=== PATIENT | female | born 1940 | race Caucasian/White ===

== ENCOUNTER 2016-10-30 09:51 | Outpatient (CLI) | payer MEDICARE, OTHER ==
[~2016-10-30 09:51] MED LIST: ALLO100T PO; AMLO5TAB2 PO; ATOR10TA PO; CHOL50002 PO; FERR325T28 PO; HYDR-4077 PO; LEVO50TA8 PO; MEMA10TA PO; NEBI10TA2 PO; OMEP20CA10 PO; SERT50TA PO; SULF1TAB48 PO; VIT1TABL46 PO
== END 2016-10-30 23:59 | disposition home or self-care (01) ==
LOC: MRI 09:51
PROVIDERS: ATTEND Family Medicine
DX: R22.32 Localized swelling, mass and lump, left upper limb (principal)
CPT/HCPCS: 73218-TC

== ENCOUNTER 2016-11-27 15:57 | Outpatient (CLI) | payer MEDICARE, OTHER | END 2016-11-27 23:59 | disposition home or self-care (01) | LOC: RAD 15:57 | PROVIDERS: ATTEND Internal Medicine Cardiovascular Disease | DX: M19.011 Primary osteoarthritis, right shoulder (principal) | CPT/HCPCS: 73030-TC ==

== ENCOUNTER 2017-01-06 08:45 | Outpatient (CLI) | payer MEDICARE, OTHER | END 2017-01-06 23:59 | disposition home or self-care (01) | LOC: RAD 08:45 | PROVIDERS: ATTEND Family Medicine | DX: R05 Cough (principal) | CPT/HCPCS: 71020-TC ==

== ENCOUNTER 2017-01-16 08:44 | Outpatient (CLI) | payer MEDICARE, OTHER | END 2017-01-16 23:59 | disposition home or self-care (01) | LOC: CT 08:44 | PROVIDERS: ATTEND Family Medicine | DX: M47.814 Spondylosis without myelopathy or radiculopathy, thoracic region (principal); I25.10 Atherosclerotic heart disease of native coronary artery without angina pectoris; R63.4 Abnormal weight loss; N26.1 Atrophy of kidney (terminal); K44.9 Diaphragmatic hernia without obstruction or gangrene; Z90.49 Acquired absence of other specified parts of digestive tract | CPT/HCPCS: 71250-TC ==

== ENCOUNTER 2017-03-05 13:43 | Outpatient (CLI) | payer MEDICARE, OTHER | END 2017-03-05 23:59 | disposition home or self-care (01) | LOC: RAD 13:43 | PROVIDERS: ATTEND Family Medicine | DX: S69.92XA Unspecified injury of left wrist, hand and finger(s), initial encounter (principal); M19.042 Primary osteoarthritis, left hand; M11.242 Other chondrocalcinosis, left hand; M85.842 Other specified disorders of bone density and structure, left hand; X58.XXXA Exposure to other specified factors, initial encounter; Y93.89 Activity, other specified; Y92.89 Other specified places as the place of occurrence of the external cause; Y99.8 Other external cause status | CPT/HCPCS: 73130-TC ==

== ENCOUNTER 2017-10-28 06:48 | Emergency (ER) | payer MEDICARE, OTHER ==
[~2017-10-28] VITALS: Ht 152.4 cm; Wt 68.0 kg
[2017-10-28 06:55] VITALS: BP 166/71
== END 2017-10-28 08:53 | disposition home or self-care (01) ==
LOC: ER 06:48
DX: R04.0 Epistaxis (principal); E11.9 Type 2 diabetes mellitus without complications; I10 Essential (primary) hypertension; K21.9 Gastro-esophageal reflux disease without esophagitis; Z98.84 Bariatric surgery status
CPT/HCPCS: A4606; Z7610

== ENCOUNTER 2017-11-01 22:59 | Emergency (ER) | payer MEDICARE, OTHER ==
[~2017-11-01] VITALS: Ht 152.4 cm; Wt 66.2 kg
--- NOTE | 2017-11-01 23:15 | NUR ---
PT AMBULATORY TO ER BED 1. PT BIB FAMILY C/O NOSEBLEED X 2 HRS AGO. NO ACTIVE BLEEDING NOTED. PT PLACED ON MOSS GATHERER. VSS/RESP EVEN UNLABORED/NAD NOTED/SKIN WARM AND DRY/DENIES N-V-D/ AFEBRILE/AOX4. AWAITING MD KIM.
--- NOTE | 2017-11-01 23:29 | NUR ---
DR. PLATA AT BEDSIDE FOR EVAL.
[2017-11-01] MEDS ORDERED: OXYMETAZOLINE HCL NASAL SPRAY 30 ML BOTTLE NS ONE (23:33)
[2017-11-01] MEDS ORDERED: LIDOCAINE 4% PF AMPUL 40 MG/ML AMPUL ONE (23:33)
[2017-11-01] MEDS ORDERED: LIDOCAINE VISCOUS 2% UD 15 ML UDC ONE (23:39)
--- NOTE | 2017-11-01 23:40 | NUR ---
AT BEDSIDE FOR EVAL.
--- NOTE | 2017-11-01 23:48 | NUR ---
LAB AT BEDSIDE FOR DRAW.
[2017-11-01 23:53] LABS: BASOPHILS % (AUTO) 0.4 % (0.0-2.0); EOSINOPHILS # (AUTO) 0.1 /CMM (0.0-0.7); EOSINOPHILS % (AUTO) 1.1 % (0.0-6.0); HEMATOCRIT 29 % (33-45); HEMOGLOBIN 9.9 g/dL (11.5-14.8); LYMPHOCYTES # (AUTO) 1.6 /CMM (0.8-4.8); LYMPHOCYTES % (AUTO) 31.9 % (20.0-44.0); MEAN CORPUSCULAR HEMOGLOBIN 31 PG (26.0-33.0); MEAN CORPUSCULAR HGB CONC 34 g/dl (31.0-36.0); MEAN CORPUSCULAR VOLUME 91 fL (82-100); MONOCYTES # (AUTO) 0.5 /CMM (0.1-1.30); MONOCYTES % (AUTO) 10.1 % (2.0-12.0); NEUTROPHILS # (AUTO) 2.9 /CMM (1.8-8.9); NEUTROPHILS % (AUTO) 56.5 % (43.0-81.0); PLATELET COUNT (AUTO) 150 /CMM (150-450); RDW COEFFICIENT OF VARIATION 13.1 (11.5-15.0); RED BLOOD CELL COUNT(AUTO) 3.16 MIL/uL (4.0-5.2); WHITE BLOOD COUNT (AUTO) 5.1 K/uL (4.3-11.0)
--- NOTE | 2017-11-02 00:31 | NUR ---
DR HAHN PAGED PER DR PLATA.
[2017-11-02] MEDS ORDERED: OXYMETAZOLINE HCL NASAL SPRAY 30 ML BOTTLE NS ONE (01:00)
--- NOTE | 2017-11-02 01:03 | NUR ---
Patient does not wish to proceed with medical care recommended by Dr. Sykes. Patient given information related to possible complications, up to and including , which could occur as a result of leaving the hospital at this time. Patient verbalizes understanding of risks involved due to leaving against medical advice. Patient has signed AMA form.
[2017-11-02 01:05] VITALS: BP 143/78
== END 2017-11-02 01:05 | disposition left against medical advice (07) ==
LOC: ER 23:10
DX: R04.0 Epistaxis (principal); D64.9 Anemia, unspecified; E11.9 Type 2 diabetes mellitus without complications; I10 Essential (primary) hypertension; K21.9 Gastro-esophageal reflux disease without esophagitis; Z98.84 Bariatric surgery status
CPT/HCPCS: 36415; 85025; 85610; 85730; 99284; A4606; J3490; Z7610

== ENCOUNTER → 2017-11-06 | Outpatient (CLI) | payer MEDICARE, OTHER ==
[2017-11-06 16:35] LABS: BASOPHILS % (AUTO) 0.4 % (0.0-2.0); EOSINOPHILS % (AUTO) 0.7 % (0.0-6.0); HEMATOCRIT 30 % (33-45); HEMOGLOBIN 10.2 g/dL (11.5-14.8); LYMPHOCYTES # (AUTO) 1.2 /CMM (0.8-4.8); MEAN CORPUSCULAR HEMOGLOBIN 31 PG (26.0-33.0); MEAN CORPUSCULAR HGB CONC 34 g/dl (31.0-36.0); MEAN CORPUSCULAR VOLUME 92 fL (82-100); MONOCYTES # (AUTO) 0.3 /CMM (0.1-1.30); MONOCYTES % (AUTO) 5.4 % (2.0-12.0); NEUTROPHILS # (AUTO) 3.3 /CMM (1.8-8.9); NEUTROPHILS % (AUTO) 68.5 % (43.0-81.0); PLATELET COUNT (AUTO) 168 /CMM (150-450); RDW COEFFICIENT OF VARIATION 13.3 (11.5-15.0); RED BLOOD CELL COUNT(AUTO) 3.29 MIL/uL (4.0-5.2); WHITE BLOOD COUNT (AUTO) 4.8 K/uL (4.3-11.0)
[2017-11-06 16:53] LABS: IRON, SERUM 21 ug/dl (50-175); TOTAL IRON BINDING CAPACITY 197 ug/dl (250-450)
[2017-11-06 17:07] LABS: FERRITIN 178 ng/mL (8-388)
[2017-11-07 11:13] LABS: *IFE A/G RATIO 0.9 (0.7-1.7); *IFE ALBUMIN 3.2 g/dL (2.9-4.4); *IFE GAMMA GLOBULIN 1.3 g/dL (0.4-1.8); *IFE M-SPIKE Not Observed g/dL (Not Observed); *IFEALPHA-1-GLOBULIN 0.3 g/dL (0.0-0.4)
[2017-11-08 21:07] LABS: BETA-2 MICROGLOBULIN, SERUM 9.6 mg/L (0.6-2.4)
== END | disposition home or self-care (01) ==
LOC: LAB 11:56
PROVIDERS: ATTEND Family Medicine
DX: D69.9 Hemorrhagic condition, unspecified (principal)
CPT/HCPCS: 36415; 82232; 82728-TC; 82746; 83540-TC; 85025-TC; 85240

== ENCOUNTER 2017-11-25 09:19 | Outpatient (CLI) | payer MEDICARE, OTHER ==
[2017-11-25 10:38] LABS: ALANINE AMINOTRANSFERASE 17 U/L (12-78); ALBUMIN 3.3 g/dL (3.4-5.0); ALKALINE PHOSPHATASE 75 U/L (46-116); ASPARTATE AMINOTRANSFERASE 14 U/L (15-37); BILIRUBIN,TOTAL 0.4 mg/dL (0.2-1.0); CALCIUM, SERUM 8.9 mg/dL (8.5-10.1); CARBON DIOXIDE 18 mmol/L (21-32); CHLORIDE 108 mmol/L (98-107); CREATININE 2.5 mg/dL (0.6-1.3); GLUCOSE 127 mg/dL (74-106); POTASSIUM 4.2 mmol/L (3.5-5.1); SODIUM SERUM 140 mmol/L (136-145); TOTAL PROTEIN, SERUM 7.8 g/dL (6.4-8.2)
[2017-11-25 10:39] LABS: IRON, SERUM 39 ug/dl (50-175); TOTAL IRON BINDING CAPACITY 225 ug/dl (250-450)
[2017-11-25 10:42] LABS: UREA NITROGEN, BLOOD 86 mg/dL (7-18)
[2017-11-25 10:45] LABS: CHOLESTEROL 150 mg/dL (<200); FREE T4 (FREE THYROXINE) 1.02 ng/dL (0.76-1.46); HDL CHOLESTEROL 27 mg/dL (40-60); LDL 104 mg/dL (0-99); THYROID STIMULATING HORMONE 1.777 uIU/mL (0.358-3.74); TRIGLYCERIDES 165 mg/dL (30-150)
[2017-11-25 11:00] LABS: BASOPHILS % (AUTO) 0.3 % (0.0-2.0); EOSINOPHILS # (AUTO) 0.1 /CMM (0.0-0.7); EOSINOPHILS % (AUTO) 1.3 % (0.0-6.0); HEMATOCRIT 30 % (33-45); HEMOGLOBIN 10.2 g/dL (11.5-14.8); LYMPHOCYTES # (AUTO) 1.3 /CMM (0.8-4.8); LYMPHOCYTES % (AUTO) 28.3 % (20.0-44.0); MEAN CORPUSCULAR HEMOGLOBIN 31 PG (26.0-33.0); MEAN CORPUSCULAR HGB CONC 34 g/dl (31.0-36.0); MEAN CORPUSCULAR VOLUME 91 fL (82-100); MONOCYTES # (AUTO) 0.4 /CMM (0.1-1.30); MONOCYTES % (AUTO) 7.7 % (2.0-12.0); NEUTROPHILS # (AUTO) 2.8 /CMM (1.8-8.9); NEUTROPHILS % (AUTO) 62.4 % (43.0-81.0); PLATELET COUNT (AUTO) 179 /CMM (150-450); RDW COEFFICIENT OF VARIATION 13.6 (11.5-15.0); RED BLOOD CELL COUNT(AUTO) 3.34 MIL/uL (4.0-5.2); WHITE BLOOD COUNT (AUTO) 4.5 K/uL (4.3-11.0)
[2017-11-25 11:30] LABS: APPEARANCE,URINE CLEAR (CLEAR); BILIRUBIN,URINE NEGATIVE (NEGATIVE); BLOOD, URINE NEGATIVE Ery/uL (NEGATIVE); COLOR,URINE YELLOW (YELLOW); KETONES,URINE NEGATIVE (NEGATIVE); LEUKOCYTE ESTERASE ,URINE NEGATIVE (NEGATIVE); NITRITE, URINE NEGATIVE (NEGATIVE); PH,URINE 5.5 (5.0-8.0); PROTEIN,URINE 2+ mg/dl (NEGATIVE); UGLUCOSE NEGATIVE (NEGATIVE); UROBILINOGEN,URINE 0.2 EU/dL (0.2)
[2017-11-25 13:30] LABS: BACTERIA,URINE Rare /HPF (None Seen); RBC,URINE 0-2 /HPF (0-2); SQUAMOUS EPITHELIAL CELL,UR Few /HPF (None Seen); WBC,URINE 0-2 /HPF (0-3)
[2017-11-26] MEDS ORDERED: NEBI2.5T5 PO (15:27)
[2017-11-26] MEDS ORDERED: HYDR100T27 PO (15:27)
[2017-11-26] MEDS ORDERED: TRAN650T2 PO (15:27)
[2017-11-26] MEDS ORDERED: SUCR1TAB31 PO (15:27)
[2017-11-26] MEDS ORDERED: [UNRECOGNIZED DRUG - CODE] NS (15:27)
== END 2017-11-25 23:59 | disposition home or self-care (01) ==
LOC: LAB 09:19
PROVIDERS: ATTEND Family Medicine
DX: D50.9 Iron deficiency anemia, unspecified (principal); R63.4 Abnormal weight loss; E55.9 Vitamin D deficiency, unspecified; E11.610 Type 2 diabetes mellitus with diabetic neuropathic arthropathy
CPT/HCPCS: 36415; 80053-TC; 80061-TC; 81000-TC; 82306; 82728-TC; 82746; 83540-TC; 84439-TC; 84443-TC; 85025-TC

== ENCOUNTER 2017-11-26 13:06 | Inpatient (IN) | payer MEDICARE, OTHER ==
[~2017-11-26] VITALS: Ht 152.4 cm; Wt 64.4 kg
--- NOTE | 2017-11-26 13:20 | NUR ---
PATIENT WAS SENT BY DR JEREZ FOR ABLAB FOR ELEVATED RENAL FUNCTION. PT DENIES PAIN. VSS
[2017-11-26 13:45] LABS: BASOPHILS % (AUTO) 0.2 % (0.0-2.0); EOSINOPHILS % (AUTO) 0.8 % (0.0-6.0); HEMATOCRIT 29 % (33-45); HEMOGLOBIN 10.2 g/dL (11.5-14.8); LYMPHOCYTES # (AUTO) 1.4 /CMM (0.8-4.8); LYMPHOCYTES % (AUTO) 34.3 % (20.0-44.0); MEAN CORPUSCULAR HEMOGLOBIN 31 PG (26.0-33.0); MEAN CORPUSCULAR HGB CONC 35 g/dl (31.0-36.0); MEAN CORPUSCULAR VOLUME 90 fL (82-100); MONOCYTES # (AUTO) 0.4 /CMM (0.1-1.30); MONOCYTES % (AUTO) 8.8 % (2.0-12.0); NEUTROPHILS # (AUTO) 2.4 /CMM (1.8-8.9); NEUTROPHILS % (AUTO) 55.9 % (43.0-81.0); PLATELET COUNT (AUTO) 168 /CMM (150-450); RED BLOOD CELL COUNT(AUTO) 3.28 MIL/uL (4.0-5.2); WHITE BLOOD COUNT (AUTO) 4.2 K/uL (4.3-11.0)
[2017-11-26 13:58] LABS: INR 0.95 (0.85-1.15)
[2017-11-26 14:03] LABS: TROPONIN I < 0.017 ng/mL (0.00-0.056)
[2017-11-26 14:07] LABS: ALANINE AMINOTRANSFERASE 15 U/L (12-78); ALBUMIN 3.2 g/dL (3.4-5.0); ALKALINE PHOSPHATASE 81 U/L (46-116); ASPARTATE AMINOTRANSFERASE 15 U/L (15-37); B-TYPE NATRIURETIC PEPTIDE 5154 PG/ML (0-125); BILIRUBIN,DIRECT 0.1 mg/dL (0.0-0.2); BILIRUBIN,TOTAL 0.5 mg/dL (0.2-1.0); CALCIUM, SERUM 8.7 mg/dL (8.5-10.1); CARBON DIOXIDE 19 mmol/L (21-32); CHLORIDE 110 mmol/L (98-107); CREATININE 2.5 mg/dL (0.6-1.3); GLUCOSE 178 mg/dL (74-106); POTASSIUM 4.4 mmol/L (3.5-5.1); SODIUM SERUM 140 mmol/L (136-145); TOTAL PROTEIN, SERUM 7.6 g/dL (6.4-8.2)
[2017-11-26 14:10] LABS: UREA NITROGEN, BLOOD 83 mg/dL (7-18)
--- NOTE | 2017-11-26 14:44 | NUR ---
DR WILSON ON THE PHONE WITH DR ANA JOSEPH
--- NOTE | 2017-11-26 14:55 | NUR ---
CALLED NURSING SUP. FOR TELE BED
--- NOTE | 2017-11-26 15:25 | NUR ---
KANNAN MARIN AT [facility]
[2017-11-26] MEDS ORDERED: HYDR100T27 PO (15:27)
[2017-11-26] MEDS ORDERED: [UNRECOGNIZED DRUG - CODE] NS (15:27)
[2017-11-26] MEDS ORDERED: NEBI2.5T5 PO (15:27)
[2017-11-26] MEDS ORDERED: SUCR1TAB31 PO (15:27)
[2017-11-26] MEDS ORDERED: TRAN650T2 PO (15:27)
[2017-11-26] MEDS ORDERED: IV NS 0.9% 500 ML IV ONE (15:30)
[2017-11-26] MEDS ORDERED: IV NS 0.9% 1,000 ML IV PRN (15:43)
--- NOTE | 2017-11-26 15:54 | NUR ---
REPORT GIVEN TO JARED IBARRA
[2017-11-26] MEDS ORDERED: ACETAMINOPHEN 325 MG TABLET PO PRN (16:00)
[2017-11-26] MEDS ORDERED: ONDANSETRON HCL/PF 4 MG/2 ML VIAL IVP PRN (16:00)
[2017-11-26] MEDS ORDERED: HYDROCODONE/APAP 5/325MG 1 EACH TABLET PO PRN (16:00)
[2017-11-26] MEDS ORDERED: MAGNESIUM HYDROXIDE 30 ML UDC PO PRN (16:00)
[2017-11-26] MEDS ORDERED: MAG HYDROX/AL HYDROX/SIMETH 30 ML UDC PO PRN (16:00)
[2017-11-26] MEDS ORDERED: SUCRALFATE 1 G TABLET PO PRN (16:00)
[2017-11-26] MEDS ORDERED: MORPHINE SULFATE INJ 4 MG/ML DISP.SYRIN IV PRN (17:00)
[2017-11-26] MEDS ORDERED: AMLODIPINE BESYLATE 5 MG TABLET PO SCH (17:00)
[2017-11-26] MEDS ORDERED: MEMANTINE HCL 5 MG TABLET PO SCH (17:00)
[2017-11-26] MEDS ORDERED: hydrALAZINE HCL 10 MG TABLET PO SCH ×2 (17:00→17:22)
[2017-11-26] MEDS ORDERED: BYSTOLIC 2.5 MG PO SCH (17:30)
[2017-11-26] MEDS ORDERED: IV NS 0.9% 500 ML IV PRN (17:30)
[2017-11-26] MEDS ORDERED: DDAVP PRN (17:30)
--- NOTE | 2017-11-26 18:00 | NUR ---
pt. adm. to rm [id number].hooked up to tele sr rate of 70.dtr.at bedside.dr. man in to see pt.orders per kirstie nixon.ua spec. to lab.
--- NOTE | 2017-11-26 18:30 | NUR ---
admit photos taken.
--- NOTE | 2017-11-26 19:40 | NUR ---
TRAUMA COORDINATOR OPENING NOTE RECEIVED PATIENT IN BED RESTING COMFORTABLY, ALERT ORIENTED X 3, ON ROOM AIR. RESPIRATIONS EVEN AND UNLABORED, NO SIGNS OF APPARENT DISTRESS OR DISCOMFORT NOTED, DENIES SOB AND PAIN AT THIS TIME. PATIENT ON TELE MONITOR. RIGHT AC IV 20G WITH FLUIDS RUNNING. PATIENT KEPT CLEAN AND COMFORTABLE. FAMILY AT BEDSIDE. SAFETY MEASURES IN PLACE, BED IN LOW LOCKED POSITION, SIDE RAILS UPX2, CALL LIGHT WITHIN EASY REACH. WILL CONTINUE TO MONITOR.
[2017-11-26 19:52] LABS: APPEARANCE,URINE CLEAR (CLEAR); BILIRUBIN,URINE NEGATIVE (NEGATIVE); BLOOD, URINE NEGATIVE Ery/uL (NEGATIVE); COLOR,URINE YELLOW (YELLOW); KETONES,URINE NEGATIVE (NEGATIVE); LEUKOCYTE ESTERASE ,URINE NEGATIVE (NEGATIVE); NITRITE, URINE NEGATIVE (NEGATIVE); PROTEIN,URINE 2+ mg/dl (NEGATIVE); UGLUCOSE NEGATIVE (NEGATIVE); UROBILINOGEN,URINE 0.2 EU/dL (0.2)
[2017-11-26 20:00] VITALS: BP 121/64
[2017-11-26 20:10] LABS: BACTERIA,URINE None seen /HPF (None Seen); SQUAMOUS EPITHELIAL CELL,UR Rare /HPF (None Seen)
[2017-11-26] MEDS ORDERED: TEMAZEPAM 15 MG CAPSULE PO PRN (22:00)
[2017-11-26] MEDS ORDERED: ATORVASTATIN 10 MG TABLET PO SCH (22:00)
[2017-11-26] MEDS: AMLODIPINE BESYLATE 5 MG TABLET PO SCH (22:06)
[2017-11-26] MEDS: MEMANTINE HCL 5 MG TABLET PO SCH (22:08)
[2017-11-27 06:45] LABS: BASOPHILS % (AUTO) 0.4 % (0.0-2.0); EOSINOPHILS # (AUTO) 0.1 /CMM (0.0-0.7); EOSINOPHILS % (AUTO) 1.8 % (0.0-6.0); HEMATOCRIT 27 % (33-45); HEMOGLOBIN 9.2 g/dL (11.5-14.8); LYMPHOCYTES # (AUTO) 1.5 /CMM (0.8-4.8); LYMPHOCYTES % (AUTO) 38.1 % (20.0-44.0); MEAN CORPUSCULAR HEMOGLOBIN 31 PG (26.0-33.0); MEAN CORPUSCULAR HGB CONC 34 g/dl (31.0-36.0); MEAN CORPUSCULAR VOLUME 90 fL (82-100); MONOCYTES # (AUTO) 0.4 /CMM (0.1-1.30); MONOCYTES % (AUTO) 11.2 % (2.0-12.0); NEUTROPHILS # (AUTO) 1.9 /CMM (1.8-8.9); NEUTROPHILS % (AUTO) 48.5 % (43.0-81.0); PLATELET COUNT (AUTO) 154 /CMM (150-450); RDW COEFFICIENT OF VARIATION 13.9 (11.5-15.0); RED BLOOD CELL COUNT(AUTO) 3.03 MIL/uL (4.0-5.2); WHITE BLOOD COUNT (AUTO) 3.8 K/uL (4.3-11.0)
--- NOTE | 2017-11-27 06:51 | NUR ---
MS RN CLOSING NOTE PATIENT IN BED RESTING COMFORTABLY, ALERT ORIENTED X 3, FORGETFUL AT TIMES. ON ROOM AIR. RESPIRATIONS EVEN AND UNLABORED, NO SIGNS OF APPARENT DISTRESS OR DISCOMFORT NOTED, DENIES SOB AND PAIN AT THIS TIME. RIGHT AC IV 20G WITH HL. PATENT AND INTACT, FLASHED WITH SALINE. PATIENT IS AMBULATORY. ABLE TO MAKE NEEDS KNOWN. KEPT CLEAN AND COMFORTABLE ALL NEEDS ATTENDED. SAFETY MEASURES IN PLACE, BED IN LOW LOCKED POSITION, SIDE RAILS UPX2, CALL LIGHT WITHIN EASY REACH. WILL CONTINUE TO MONITOR. Addendum: 11/27/17 at 0654 by LINDSAY ROSALES RN WILL ENDORSE TO AM NURSE FOR CONTINUITY OF CARE.
[2017-11-27 07:02] LABS: CHOLESTEROL 133 mg/dL (<200); HDL CHOLESTEROL 23 mg/dL (40-60); LDL 87 mg/dL (0-99); TRIGLYCERIDES 161 mg/dL (30-150)
[2017-11-27 07:08] LABS: CALCIUM, SERUM 8.6 mg/dL (8.5-10.1); CARBON DIOXIDE 17 mmol/L (21-32); CHLORIDE 113 mmol/L (98-107); CREATININE 2.2 mg/dL (0.6-1.3); GLUCOSE 110 mg/dL (74-106); MAGNESIUM 1.8 mg/dL (1.8-2.4); PHOSPHORUS 4.8 mg/dL (2.5-4.9); POTASSIUM 4.1 mmol/L (3.5-5.1); SODIUM SERUM 143 mmol/L (136-145); UREA NITROGEN, BLOOD 76 mg/dL (7-18)
[2017-11-27] MEDS ORDERED: PANTOPRAZOLE 40 MG TABLET.DR PO SCH (07:30)
[2017-11-27 08:00] VITALS: BP 135/62
[2017-11-27] MEDS ORDERED: hydrALAZINE HCL 25 MG TABLET PO SCH (08:30)
--- NOTE | 2017-11-27 08:44 | NUR ---
MS RN AM NOTE: PATIENT IS ALERT AND ORIENTED X2. PATIENT IS BRP, HAS RIGHT AC IV NOT RUNNING, AND ON ROOM AIR. RESPIRATIONS EVEN AND UNLABORED. NO ACUTE DISTRESS NOTED AT THE MOMENT. CALL LIGHT WITHIN REACH, BED IN LOCKED POSITION, AND 2X GUARD RAILS UP. PATIENT MONITORED FOR SAFETY.
[2017-11-27] MEDS ORDERED: FERROUS SULFATE (325 MG) 325 MG/TAB TABLET PO SCH (09:00)
[2017-11-27] MEDS ORDERED: LEVOTHYROXINE SODIUM 50 MCG TABLET PO SCH (09:00)
[2017-11-27] MEDS ORDERED: CHOLECALCIFEROL (VITAMIN D 3) 400 UNIT TABLET PO SCH (09:00)
[2017-11-27] MEDS ORDERED: VIT B CMPLX 3/FA/VIT C/BIOTIN 1 TAB TABLET PO SCH (09:00)
[2017-11-27] MEDS: AMLODIPINE BESYLATE 5 MG TABLET PO SCH (09:07)
[2017-11-27] MEDS: MEMANTINE HCL 5 MG TABLET PO SCH (09:07)
[2017-11-27 09:08] VITALS: BP 135/62
--- NOTE | 2017-11-27 11:00 | NUR ---
MEAT BUTCHER NOTE: PATIENT LEFT THE UNIT AT 1055, ACCOMPANIED BY DAUGHTER. PATIENT MEDICALLY STABLE DURING DISCHARGE. V/S STABLE. IV RIGHT AC REMOVED AND TOLERATED WELL. SKIN ASSESSMENT REFUSED. EXIT CARE SIGNED, PRINTED, AND EXPLAINED TO PATIENT'S DAUGHTER. BELONGINGS AND MEDICATIONS GIVEN TO PATIENT AT DISCHARGE. ROBERTH MCKEON GAVE ORDER OF DISCHARGE AND AWARE. PATIENT ESCORTED DOWN TO LOBBY IN WHEELCHAIR.
== END 2017-11-27 10:49 | disposition home or self-care (01) | DRG 683 ==
LOC: ER 13:09 → TELE 16:04 → MED 23:55
PROVIDERS: ADMIT Nurse Practitioner Acute Care; ATTEND Nurse Practitioner Acute Care
DX: N17.0 Acute kidney failure with tubular necrosis (principal); I13.0 Hypertensive heart and chronic kidney disease with heart failure and stage 1 through stage 4 chronic kidney disease, or unspecified chronic kidney disease; E11.22 Type 2 diabetes mellitus with diabetic chronic kidney disease; I50.32 Chronic diastolic (congestive) heart failure; J98.11 Atelectasis; D63.8 Anemia in other chronic diseases classified elsewhere; N18.9 Chronic kidney disease, unspecified; K21.9 Gastro-esophageal reflux disease without esophagitis; E78.5 Hyperlipidemia, unspecified; Z98.84 Bariatric surgery status; F03.90 Unspecified dementia, unspecified severity, without behavioral disturbance, psychotic disturbance, mood disturbance, and anxiety; R04.0 Epistaxis; I34.0 Nonrheumatic mitral (valve) insufficiency
CPT/HCPCS: 36415; 71045-TC; 80048-TC; 80061-TC; 80076-TC; 81000-TC; 83735-TC; 83880; 84100-TC; 84484-TC; 85025-TC; 85730-TC; 87081-TC; A4606; J7030; J7040; Z7610

== ENCOUNTER 2017-12-05 09:20 | Outpatient (CLI) | payer MEDICARE, OTHER ==
[~2017-12-05 09:20] MED LIST changes: -ALLO100T PO; -HYDR-4077 PO; +HYDR100T27 PO; -NEBI10TA2 PO; +NEBI2.5T5 PO; +SUCR1TAB31 PO; -SULF1TAB48 PO; +TRAN650T2 PO; +[UNRECOGNIZED DRUG - CODE] NS
[2017-12-05 10:06] LABS: CALCIUM, SERUM 8.5 mg/dL (8.5-10.1); CARBON DIOXIDE 21 mmol/L (21-32); CHLORIDE 102 mmol/L (98-107); CREATININE 1.7 mg/dL (0.6-1.3); GLUCOSE 132 mg/dL (74-106); POTASSIUM 4.7 mmol/L (3.5-5.1); SODIUM SERUM 133 mmol/L (136-145); UREA NITROGEN, BLOOD 51 mg/dL (7-18)
== END 2017-12-05 23:59 | disposition home or self-care (01) ==
LOC: LAB 09:20
PROVIDERS: ATTEND Family Medicine
DX: N17.9 Acute kidney failure, unspecified (principal)
CPT/HCPCS: 36415; 80048-TC

== ENCOUNTER 2017-12-16 09:06 | Outpatient (CLI) | payer MEDICARE, OTHER | END 2017-12-16 23:59 | disposition home or self-care (01) | LOC: MRI 09:06 | PROVIDERS: ATTEND Family Medicine | DX: R90.82 White matter disease, unspecified (principal); G93.89 Other specified disorders of brain; J32.0 Chronic maxillary sinusitis; J32.2 Chronic ethmoidal sinusitis | CPT/HCPCS: 70551-TC ==

== ENCOUNTER 2017-12-18 08:43 | Outpatient (CLI) | payer MEDICARE, OTHER ==
[2017-12-18 09:45] LABS: CALCIUM, SERUM 8.6 mg/dL (8.5-10.1); CARBON DIOXIDE 22 mmol/L (21-32); CHLORIDE 109 mmol/L (98-107); CREATININE 1.9 mg/dL (0.6-1.3); GLUCOSE 115 mg/dL (74-106); POTASSIUM 5.6 mmol/L (3.5-5.1); SODIUM SERUM 140 mmol/L (136-145); UREA NITROGEN, BLOOD 37 mg/dL (7-18)
== END 2017-12-18 23:59 | disposition home or self-care (01) ==
LOC: LAB 08:43
PROVIDERS: ATTEND Family Medicine
DX: E87.5 Hyperkalemia (principal)
CPT/HCPCS: 36415; 80048-TC

== ENCOUNTER 2017-12-30 08:22 | Outpatient (CLI) | payer MEDICARE, OTHER ==
[~2017-12-30 08:22] MED LIST changes: -AMLO5TAB2 PO; +AMLO5TAB7 PO
== END 2017-12-30 23:59 | disposition home or self-care (01) ==
LOC: RAD 08:22
PROVIDERS: ATTEND Family Medicine
DX: I70.0 Atherosclerosis of aorta (principal); M46.04 Spinal enthesopathy, thoracic region; J98.11 Atelectasis; Z90.49 Acquired absence of other specified parts of digestive tract
CPT/HCPCS: 71046

== ENCOUNTER 2018-01-22 09:05 | Outpatient (CLI) | payer MEDICARE, OTHER | END 2018-01-22 23:59 | disposition home or self-care (01) | LOC: CT 09:05 | PROVIDERS: ATTEND Family Medicine | DX: J98.11 Atelectasis (principal); R63.4 Abnormal weight loss; I51.7 Cardiomegaly; I25.10 Atherosclerotic heart disease of native coronary artery without angina pectoris; M47.896 Other spondylosis, lumbar region; M43.26 Fusion of spine, lumbar region; I70.0 Atherosclerosis of aorta; Z90.49 Acquired absence of other specified parts of digestive tract | CPT/HCPCS: 71250-TC ==

== ENCOUNTER 2018-01-23 09:53 | Outpatient (CLI) | payer MEDICARE, OTHER ==
[2018-01-23 11:33] LABS: CALCIUM, SERUM 8.8 mg/dL (8.5-10.1); CARBON DIOXIDE 20 mmol/L (21-32); CHLORIDE 107 mmol/L (98-107); CREATININE 2.3 mg/dL (0.6-1.3); GLUCOSE 132 mg/dL (74-106); POTASSIUM 5.1 mmol/L (3.5-5.1); SODIUM SERUM 138 mmol/L (136-145); UREA NITROGEN, BLOOD 41 mg/dL (7-18)
== END 2018-01-23 23:59 | disposition home or self-care (01) ==
LOC: LAB 09:53
PROVIDERS: ATTEND Family Medicine
DX: E87.5 Hyperkalemia (principal)
CPT/HCPCS: 36415; 80048-TC

== ENCOUNTER 2018-07-08 08:57 | Outpatient (CLI) | payer MEDICARE, OTHER | END 2018-07-08 23:59 | disposition home or self-care (01) | LOC: MRI 08:57 | PROVIDERS: ATTEND Family Medicine | DX: I67.82 Cerebral ischemia (principal); J32.2 Chronic ethmoidal sinusitis; M17.12 Unilateral primary osteoarthritis, left knee; I70.90 Unspecified atherosclerosis; I10 Essential (primary) hypertension; E11.9 Type 2 diabetes mellitus without complications | CPT/HCPCS: 70551-TC; 73562 ==

== ENCOUNTER 2018-10-15 14:55 | Outpatient (CLI) | payer MEDICARE, OTHER ==
[~2018-10-15 14:55] MED LIST changes: -AMLO5TAB7 PO; +AMLO5TAB9 PO
== END 2018-10-15 23:59 | disposition home or self-care (01) ==
LOC: CT 14:55
PROVIDERS: ATTEND Family Medicine
DX: I51.7 Cardiomegaly (principal); J90 Pleural effusion, not elsewhere classified; I70.0 Atherosclerosis of aorta; I25.10 Atherosclerotic heart disease of native coronary artery without angina pectoris; M46.04 Spinal enthesopathy, thoracic region
CPT/HCPCS: 71250-TC

== ENCOUNTER 2018-12-17 10:36 | Outpatient (CLI) | payer MEDICARE, OTHER | END 2018-12-17 23:59 | disposition home or self-care (01) | LOC: RAD 10:36 | PROVIDERS: ATTEND Family Medicine | DX: I70.0 Atherosclerosis of aorta (principal); M47.814 Spondylosis without myelopathy or radiculopathy, thoracic region | CPT/HCPCS: 71046 ==

== ENCOUNTER 2019-03-05 09:42 | Outpatient (CLI) | payer MEDICARE, OTHER | END 2019-03-05 23:59 | disposition home or self-care (01) | LOC: RAD 09:42 | PROVIDERS: ATTEND Family Medicine | DX: M77.32 Calcaneal spur, left foot (principal); M85.872 Other specified disorders of bone density and structure, left ankle and foot; R22.42 Localized swelling, mass and lump, left lower limb | CPT/HCPCS: 73610-TC ==

== ENCOUNTER 2019-04-30 10:24 | Outpatient (CLI) | payer MEDICARE, OTHER ==
[~2019-04-30 10:24] MED LIST changes: -OMEP20CA10 PO; +OMEP20CA11 PO
== END 2019-04-30 23:59 | disposition home or self-care (01) ==
LOC: RAD 10:24
PROVIDERS: ATTEND Family Medicine
DX: J90 Pleural effusion, not elsewhere classified (principal); I70.0 Atherosclerosis of aorta; I51.7 Cardiomegaly
CPT/HCPCS: 71046

== ENCOUNTER 2022-08-12 01:13 | Inpatient (IN) | payer MEDICARE, OTHER ==
[~2022-08-12] VITALS: Ht 152.4 cm; Wt 74.4 kg
[~2022-08-12 01:13] MED LIST changes: +AMLO-212 PO; -AMLO5TAB9 PO; -OMEP20CA11 PO; +OMEP20CA15 PO
--- NOTE | 2022-08-12 01:33 | NUR ---
BIBRA FOR C/O ALOC, MORE DIFFICULT TO AROUSE THAN USUAL EARLIER TODAY. PT CURRENTLY AT BASELINE MENTATION X1 DUE TO HX OF DEMENTIA. DAUGHTER HAS ALSO ENDORSED RECENT DESATURTION OVER THE LAST FEW DAYS. PT SATTING 92%RA, PLACED ON 2LPM NC AND INCREASED TO 98%. PT RESTING COMOFORTABLY EASILY AROUSES NO SOB OR COMPLAINTS OF PAIN. PLACED ON MONITOR AND V/S WNL.
--- NOTE | 2022-08-12 02:27 | NUR ---
XRAY AT BEDSIDE
--- NOTE | 2022-08-12 02:46 | NUR ---
PT DOES NOT PRODUCE URINE DUE TO HX ESRD. MADE AWARE FOR UA.
[2022-08-12 03:05] LABS: BASOPHILS % (AUTO) 0.2 % (0.0-2.0); EOSINOPHILS % (AUTO) 1.6 % (0.0-6.0); HEMATOCRIT 27 % (33-45); LYMPHOCYTES # (AUTO) 1.9 K/uL (0.8-4.8); LYMPHOCYTES % (AUTO) 25.9 % (20.0-44.0); MEAN CORPUSCULAR HGB CONC 33 g/dl (31.0-36.0); MEAN CORPUSCULAR VOLUME 103 fL (82-100); MONOCYTES # (AUTO) 0.7 K/uL (0.1-1.30); MONOCYTES % (AUTO) 9.8 % (2.0-12.0); NEUTROPHILS # (AUTO) 4.6 K/uL (1.8-8.9); NEUTROPHILS % (AUTO) 62.5 % (43.0-81.0); PLATELET COUNT (AUTO) 188 K/uL (150-450); RED BLOOD CELL COUNT(AUTO) 2.64 MIL/uL (4.0-5.2); WHITE BLOOD COUNT (AUTO) 7.4 K/uL (4.3-11.0)
[2022-08-12 03:24] LABS: ALANINE AMINOTRANSFERASE < 6 U/L (12-78); ALBUMIN 2.8 g/dL (3.4-5.0); ALKALINE PHOSPHATASE 232 U/L (46-116); ASPARTATE AMINOTRANSFERASE 16 U/L (15-37); BILIRUBIN,DIRECT 0.1 mg/dL (0.0-0.2); BILIRUBIN,TOTAL 0.5 mg/dL (0.2-1.0); CALCIUM, SERUM 7.1 mg/dL (8.5-10.1); CARBON DIOXIDE 27 mmol/L (21-32); CHLORIDE 111 mmol/L (98-107); GLUCOSE 158 mg/dL (74-106); POTASSIUM 3.7 mmol/L (3.5-5.1); SODIUM SERUM 144 mmol/L (136-145); TOTAL PROTEIN, SERUM 6.5 g/dL (6.4-8.2)
[2022-08-12 03:33] LABS: CREATININE 8.5 mg/dL (0.6-1.3); UREA NITROGEN, BLOOD 88 mg/dL (7-18)
--- NOTE | 2022-08-12 03:41 | NUR ---
leslee collected and sent to lab
[2022-08-12] MEDS ORDERED: MORPHINE SULFATE INJ 2 MG/ML DISP.SYRIN IV PRN (05:30)
[2022-08-12] MEDS ORDERED: ZOLPIDEM TARTRATE 5 MG TABLET PO PRN (05:30)
[2022-08-12] MEDS ORDERED: Z GUARD REMEDY 4 OZ OINT TP PRN (05:30)
[2022-08-12] MEDS ORDERED: ACETAMINOPHEN 325 MG TABLET PO PRN (05:30)
[2022-08-12] MEDS ORDERED: MAG HYDROX/AL HYDROX/SIMETH 30 ML UDC PO PRN (05:30)
[2022-08-12] MEDS ORDERED: MAGNESIUM HYDROXIDE 30 ML UDC PO PRN (05:30)
[2022-08-12] MEDS ORDERED: ONDANSETRON HCL/PF 4 MG/2 ML VIAL IVP PRN (05:30)
[2022-08-12] MEDS ORDERED: DEXTROSE 50%-WATER 50 ML DISP.SYRIN IV PRN (06:00)
--- NOTE | 2022-08-12 06:34 | NUR ---
REPORT GIVEN TO STACEY BROCK ON FIRST FLOOR
--- NOTE | 2022-08-12 06:46 | NUR ---
Thaddeus kasper in [facility] - 08/12/22 at 0647 by ALONSO PT TRANSPORTED TO ROOM 114
--- NOTE | 2022-08-12 06:47 | NUR ---
PT TRANSPORTED TO ROOM 114 PER ACLS PROTOCOL
[2022-08-12 06:57] VITALS: BP 107/57
--- NOTE | 2022-08-12 07:01 | NUR ---
PT RECEIVED FROM ER WITH DAUGHTER. PICTURES TAKEN OF PRE-EXISTING WOUNDS. VS WNL. HEALTH CLUB ATTENDANT IN PLACE. PT ON 2L NC WITH SAT OF 100%. L WRIST 20 G IV ACCESS INTACT.
--- NOTE | 2022-08-12 07:25 | NUR ---
RECEIVED CALL FROM SOC AT THE LAB WITH TROPONIN RESULT OF [phone], WAS 466 EARLIER, TROPONIN TRENDING DOWN
--- NOTE | 2022-08-12 07:25 | NUR ---
AM TELE OPENING NOTES: RECEIVED PATIENT IN BED AWAKE, ALERT X 2 WITH PERIODS OF CONFUSION. NO SOB NOTED, BREATHING EVEN AND UNLABORED. ON OXYGEN @ 2L/MIN VIA N/C WITH OXYGEN SATURATION OF 100%. ON SR ON TELE MONITOR WITH HR OF 72. PATIENT HAS IV ACCESS ON LEFT WRIST # 20, ON SALINE LOCK, INTACT AND FLUSHES WELL, WITH NO S/S INFILTRATION NOTED. HAS PERMACATH ON LEFT CHEST WALL, NOTED WITH REDNESS SURROUNDING THE SITE. ALSO HAS NEW AV SHUNT PLACED ON RIGHT FOREARM, WITH GOOD BRUIT NOTED, ALSO HAS REDNESS AND ECCHYMOSIS NOTED ON THE SURROUNDING SITE. 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 HOB KEPT ELEVATED. ALL SAFETY MEASURES IMPLEMENTED. BED LOCKED AND IN LOWEST POSITION. CALL LIGHT WITHIN REACH. WILL CONTINUE TO MONITOR PATIENT THROUGHOUT SHIFT.
[2022-08-12] MEDS: BLOOD SUGAR DIAGNOSTIC 1 EACH STRIP IN SCH ×4 (07:52→21:36)
[2022-08-12] MEDS: INSULIN REGULAR, HUMAN 100 UNIT/ML 3 ML VIAL SQ PRN ×3 (07:54→22:12)
[2022-08-12 08:00] VITALS: BP 118/48
[2022-08-12] MEDS: ASPIRIN 81 MG TAB.CHEW PO SCH ×2 (09:00→09:01)
[2022-08-12] MEDS: PANTOPRAZOLE 40 MG VIAL IV SCH (09:01)
[2022-08-12] MEDS ORDERED: OMEPRAZOLE 20 MG CAPSULE.DR PO SCH (09:30)
[2022-08-12] MEDS: AMLODIPINE BESYLATE 5 MG TABLET PO SCH ×2 (09:30→16:10)
[2022-08-12] MEDS ORDERED: SUCRALFATE 1 G TABLET PO PRN (09:30)
[2022-08-12] MEDS ORDERED: MIRT-90 PO (10:33)
[2022-08-12] MEDS ORDERED: ERGO500093 PO (10:33)
[2022-08-12] MEDS ORDERED: ESCI5TAB PO (10:33)
[2022-08-12] MEDS ORDERED: SEVE800T8 PO (10:33)
[2022-08-12] MEDS ORDERED: EVOL140P3 SQ (10:33)
[2022-08-12 11:01] LABS: THYROID STIMULATING HORMONE 0.437 uIU/mL (0.358-3.74)
[2022-08-12 12:00] VITALS: BP 109/35
[2022-08-12 12:25] LABS: IRON, SERUM 22 ug/dl (50-175); TOTAL IRON BINDING CAPACITY 140 ug/dl (250-450)
--- NOTE | 2022-08-12 12:39 | NUR ---
SOC FROM THE LAB CALLED TO GIVE REPORT OF TROPONIN OF [phone], RESULT TRENDING DOWN. PATIENT HAS NO C/O CHEST PAIN OR DISCOMFORT AT THIS TIME.
[2022-08-12] MEDS: ESCITALOPRAM OXALATE (10 MG) 10 MG TABLET PO SCH (13:45)
--- NOTE | 2022-08-12 14:23 | NUR ---
SPOKE WITH DR. CHRIS AND INFORMED HIM THAT THE PATENT'S DAUGHTER SAID THAT SHE ONLY TAKES NAMENDA 5 MG PO BID AND THAT SHE DOES NOT TAKE ANY BP MEDS AND DOES NOT TAKE ASPIRIN. ORDERED TO D/C ALL HER BP MEDS AND ASPIRIN AND ORDERED NAMENDA 5 MG PO BID. ALSO INFORMED OF TROPONIN TRENDING DOWN WITH LATEST RESULT OF 387 WITH NO FURTHER ORDERS NOTED.
[2022-08-12 16:00] VITALS: BP 99/36
[2022-08-12] MEDS: MEMANTINE HCL 5 MG TABLET PO SCH (16:50)
[2022-08-12] MEDS ORDERED: MEMANTINE HCL 5 MG TABLET PO SCH (17:00)
[2022-08-12] MEDS ORDERED: hydrALAZINE HCL 50 MG TABLET PO SCH (17:00)
[2022-08-12] MEDS ORDERED: SERTRALINE HCL 50 MG TABLET PO SCH ×2 (18:00)
--- NOTE | 2022-08-12 18:52 | NUR ---
GOLD BLOWER CLOSING NOTES: PATIENT IN BED, AWAKE, ALERT ORIENTED X 2 WITH DAUGHTER AT BEDSIDE. PATIENT WITH NO C/O CHEST PAIN OR DISCOMFORT THROUGHOUT SHIFT. NO SOB NOTED. ON OXYGEN @ 1L/MIN VIA N/C WITH OXYGEN SATURATION OF 97%. ON SR ON TELE MONITOR WITH HR OF 88. ALL NEEDS MET AND ANTICIPATED. CALL LIGHT WITHIN REACH. FAMILY MEMBER WILL STAY DURING THE NIGHT, MD AND NURSING MIXING MACHINE TENDER MADE AWARE. WILL ENDORSE TO INCOMING NURSE FOR CONTINUITY OF CARE.
--- NOTE | 2022-08-12 19:45 | NUR ---
MICROBIOLOGY LAB MANAGER OPENING NOTES: RECEIVED PATIENT IN BED, AWAKE, ALERT ORIENTED X 2 WITH DAUGHTER AT BEDSIDE. PATIENT WITH NO C/O CHEST PAIN OR DISCOMFORT THROUGHOUT SHIFT. NO SOB NOTED. ON OXYGEN @ 1L/MIN VIA N/C WITH OXYGEN SATURATION OF 97%. ON SR ON TELE MONITOR, SAFETY PRECAUTIONS IN PLACED, CALL LIGHT WITHIN REACH. FAMILY MEMBER WILL STAY DURING THE NIGHT, MD AND NURSING HEALTH CLUB ATTENDANT MADE AWARE. WILL CONTINUE TO MONITOR THROUGHOUT THE SHIFT.
[2022-08-12 20:00] VITALS: BP 100/54
--- NOTE | 2022-08-12 20:30 | NUR ---
RN NOTE INFORMED INKER JOSE ABOUT PT DAUGHTER REQUESTING TO GIVE EPOGEN TO PT DURING DIALYSIS DUE TO ANEMIA. HGB AT 9.0 AT THIS TIME. PER INKER " NO NEED TO GIVE AT THIS TIME" ORDER TAKEN AND CARRIED OUT.
--- NOTE | 2022-08-12 20:40 | NUR ---
RN NOTE HD STARTED AT THIS TIME WITH AUTOMOTIVE SERVICES MANAGER AT BEDSIDE.
[2022-08-12] MEDS: ATORVASTATIN 10 MG TABLET PO SCH (21:36)
--- NOTE | 2022-08-12 21:40 | NUR ---
RN NOTE PT ONGOING DIALYSIS, NOTED PT WITH LOW BP. DR. WEST MADE AWARE AND ORDERED TO STOPPED DIALYSIS AT THIS TIME AND MIDODRINE 10 MG PO TID. NO FLUIDS TAKEN OUT DURING HD. ORDER TAKEN AND CARRIED OUT, WILL CONT TO MONITOR PT.
[2022-08-12] MEDS: MIDODRINE HCL (5MG) 5 MG TABLET PO SCH (22:04)
[2022-08-13] VITALS: BP 95/48
[2022-08-13 04:00] VITALS: BP 124/49
--- NOTE | 2022-08-13 06:57 | NUR ---
OPERATIONAL TRAINER CLOSING NOTES: PATIENT IN BED, AWAKE, ALERT ORIENTED X 2 WITH DAUGHTER AT BEDSIDE. PATIENT WITH NO C/O CHEST PAIN OR DISCOMFORT THROUGHOUT SHIFT. NO SOB NOTED. ON OXYGEN @ 2L/MIN VIA N/C WITH OXYGEN SATURATION OF 96%. ON SR ON TELE MONITOR HR AT 70 BPM, ALL DUE MEDS GIVEN, KEPT DRY AND CLEAN, SAFETY PRECAUTIONS IN PLACED, CALL LIGHT WITHIN REACH. FAMILY MEMBER STAYED DURING THE NIGHT, WILL ENDORSE TO AM SHIFT NURSE FOR CONTINUITY OF CARE.
[2022-08-13 07:16] LABS: BASOPHILS % (AUTO) 0.3 % (0.0-2.0); EOSINOPHILS % (AUTO) 1.8 % (0.0-6.0); HEMATOCRIT 27 % (33-45); HEMOGLOBIN 8.9 g/dL (11.5-14.8); LYMPHOCYTES # (AUTO) 1.7 K/uL (0.8-4.8); LYMPHOCYTES % (AUTO) 22.3 % (20.0-44.0); MEAN CORPUSCULAR HGB CONC 33 g/dl (31.0-36.0); MEAN CORPUSCULAR VOLUME 104 fL (82-100); MONOCYTES # (AUTO) 0.8 K/uL (0.1-1.30); MONOCYTES % (AUTO) 9.9 % (2.0-12.0); NEUTROPHILS # (AUTO) 5.1 K/uL (1.8-8.9); NEUTROPHILS % (AUTO) 65.7 % (43.0-81.0); PLATELET COUNT (AUTO) 183 K/uL (150-450); WHITE BLOOD COUNT (AUTO) 7.8 K/uL (4.3-11.0)
--- NOTE | 2022-08-13 07:30 | NUR ---
AM TELE OPENING NOTES: RECEIVED PATIENT IN BED AWAKE, ALERT X 2 WITH FAMILY AT BEDSIDE. NO RESPIRATORY DISTRESS NOTED AT THIS TIME AND BREATHING EVEN AND UNLABORED. ON OXYGEN @ 1L/MIN VIA N/C WITH OXYGEN SATURATION OF 96%. ON SR ON TELE MONITOR WITH HR OF 82. IV ACCESS ON LEFT WRIST # 20, ON SALINE LOCK, INTACT, FLUSHES WELL, WITH NO S/S INFILTRATION NOTED. PATIENT HAS PERMACATH ON LEFT CHEST WALL, ALSO HAS NEW AV SHUNT PLACED ON RIGHT FOREARM, WITH GOOD BRUIT NOTED, ALSO HAS REDNESS AND ECCHYMOSIS NOTED ON THE NEW SITE. 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 CALL LIGHT WITHIN REACH. ALL SAFETY MEASURES IN PLACE. BED LOCKED AND IN LOWEST POSITION. WILL CONTINUE TO MONITOR PATIENT
[2022-08-13] MEDS: LEVOTHYROXINE SODIUM 50 MCG TABLET PO SCH (07:50)
[2022-08-13 08:00] VITALS: BP 137/39
[2022-08-13 08:08] LABS: CALCIUM, SERUM 7.4 mg/dL (8.5-10.1); CARBON DIOXIDE 22 mmol/L (21-32); CHLORIDE 106 mmol/L (98-107); GLUCOSE 168 mg/dL (74-106); MAGNESIUM 2.2 mg/dL (1.8-2.4); SODIUM SERUM 144 mmol/L (136-145)
[2022-08-13 08:09] LABS: UREA NITROGEN, BLOOD 84 mg/dL (7-18)
[2022-08-13 08:14] LABS: IRON, SERUM 16 ug/dl (50-175); TOTAL IRON BINDING CAPACITY 133 ug/dl (250-450)
[2022-08-13] MEDS: ESCITALOPRAM OXALATE (10 MG) 10 MG TABLET PO SCH (08:14)
[2022-08-13] MEDS: MEMANTINE HCL 5 MG TABLET PO SCH ×2 (08:14→16:38)
[2022-08-13] MEDS: PANTOPRAZOLE 40 MG VIAL IV SCH (08:14)
[2022-08-13] MEDS: MIDODRINE HCL (5MG) 5 MG TABLET PO SCH ×3 (08:15→17:00)
[2022-08-13] MEDS: INSULIN REGULAR, HUMAN 100 UNIT/ML 3 ML VIAL SQ PRN ×4 (08:16→22:45)
[2022-08-13] MEDS: BLOOD SUGAR DIAGNOSTIC 1 EACH STRIP IN SCH ×4 (08:17→22:43)
[2022-08-13 08:21] LABS: CHOLESTEROL 208 mg/dL (<200); HDL CHOLESTEROL 34 mg/dL (40-60); LDL 121 mg/dL (0-99); T4 (THYROXINE) 4.8 ug/dL (4.7-13.3); THYROID STIMULATING HORMONE 0.377 uIU/mL (0.358-3.74); TRIGLYCERIDES 244 mg/dL (30-150)
[2022-08-13 11:14] LABS: ABG BASE EXCESS -2.6 mmol/L; ABG OXYGEN SATURATION 94.5 % (92.0-98.5); ABG PCO2 35.3 mmHg (35.0-45.0); ABG PH 7.405 (7.350-7.450); AaDO2 31.5 mmHg; COHb 0.5 % (0.5-1.5); MetHb 0.3 % (0.0-1.5); O2Hb 93.7 % (94.0-97.0); SITE, ABG Left Radial; VENT MODE, BG ROOM AIR
[2022-08-13] MEDS: IPRATROPIUM NEB FS 0.5 MG/2.5 ML AMPUL.NEB NEB SCH ×3 (11:30→19:51)
[2022-08-13 12:00] VITALS: BP 161/76
[2022-08-13] MEDS ORDERED: MORPHINE SULFATE INJ 2 MG/ML DISP.SYRIN IV PRN (13:30)
--- NOTE | 2022-08-13 15:03 | NUR ---
PATIENT AMBULATED WITH PHYSICAL THERAPIST AND THE SALES AGENT FIRE INSURANCE ALONG THE HALLWAY. PATINE IN NO ACUTE DISTRESS NOTED.
[2022-08-13 16:00] VITALS: BP 131/65
[2022-08-13] MEDS ORDERED: VANCOMYCIN 1 GM in IV D5W 250 ML IV ONE (16:00)
--- NOTE | 2022-08-13 18:52 | NUR ---
RN CLOSING NOTES PATIENT IN BED, WITH DAUGHTERS AT BEDSIDE. PATIENT HAS NO C/O PAIN OR DISCOMFORT AT THIS TIME. NO RESPIRATORY DISTRESS NOTED RIGHT NOW. ON SR ON TELE MONITOR WITH HR OF 80. IV SITE ON LEFT WRIST # 20 INTACT, FLUSHES WELL. BED LOCKED AND IN LOWEST POSITION. ALL NEEDS MET AND ANTICIPATED. WILL ENDORSE TO NEXT SHIFT NURSE.
--- NOTE | 2022-08-13 19:05 | NUR ---
VASCULAR DOCTOR, DR. PADGETT CAME BY AND VISITED PATIENT WITH AN ORDER TO APPLY ICE AND ELEVATE RIGHT ARM. MD ALSO STATED THAT THE PATIENT DOES NOT NEED VANCO BUT IT IS UP TO THE ATTENDING MD. WILL ENDORSE TO NEXT SHIFT NURSE
--- NOTE | 2022-08-13 19:45 | NUR ---
RN OPENING NOTES: RECEIVED PATIENT IN BED AWAKE, SITTING POSITION, AWAKE, ALERT/ORIENTED X 2 AND VERBALLY RESPONSIVE. FAMILY AT BEDSIDE. BREATHING EVEN AND UNLABORED. ON O2 @ 2L/MIN VIA N/C AND PT TOLERATED WELL. IV ACCESS ON LEFT WRIST#20 INTACT AND PATENT. NO S/S INFILTRATION. PERMACATH ON LEFT CHEST WALL, COVERED WITH DRY DRESSING. NEW AV SHUNT ON RIGHT FOREARM, WITH GOOD BRUIT AND THRILL TO TOUCH, NOTED WITH REDNESS AND ECCHYMOSIS. PER Mireille PADGETT, APPLY ICE PACK PRN AND ELEVATE THE RT HAND WITH PILLOW. HAS AN OLD AV SHUNT ON LEFT ARM. NO C/O PAIN OR DISCOMFORT. NO ACUTE DISTRESS. ALL SAFETY MEASURES IN PLACE. SIDE RAILS UP X3, BED IN LOWEST POSITION AND LOCKED. PLACE CALL LIGHT WITHIN REACH. WILL CONTINUE TO MONITOR.
[2022-08-13 20:00] VITALS: BP 123/52
[2022-08-13] MEDS: ATORVASTATIN 10 MG TABLET PO SCH (22:33)
--- NOTE | 2022-08-13 22:49 | NUR ---
RN NOTES: PT'S BLOOD SUGAR 210. 4 UNITS OF REGULAR INSULIN GIVEN. NO S/S OF HYPER/HYPOGLYCEMIA. WILL CONTINUE TO MONITOR
[2022-08-14] VITALS: BP 105/39
[2022-08-14 04:00] VITALS: BP 106/40
[2022-08-14] MEDS: IPRATROPIUM NEB FS 0.5 MG/2.5 ML AMPUL.NEB NEB SCH ×5 (04:07→15:34)
--- NOTE | 2022-08-14 06:35 | NUR ---
RN CLOSING NOTES: PATIENT IN BED SLEEPING BUT EASILY AROUSABLE, AWAKE, ALERT/ORIENTED X 2 AND VERBALLY RESPONSIVE. DAUGHTER AT BEDSIDE. BREATHING EVEN AND UNLABORED. ON O2 @ 2L/MIN VIA N/C AND PT TOLERATED WELL. O2 SAT 100%. IV ACCESS ON LEFT WRIST#20 INTACT AND PATENT. NO S/S INFILTRATIONS. PERMACATH ON LEFT CHEST WALL, COVERED WITH DRY DRESSING. NEW AV SHUNT ON RIGHT FOREARM, NOTED WITH REDNESS AND ECCHYMOSIS. APPLIED ICE PACK PRN AND ELEVATE THE RT HAND WITH PILLOW. HAS AN OLD AV SHUNT ON LEFT ARM. NO C/O PAIN OR DISCOMFORT. NO ACUTE DISTRESS. ALL DUE MED GIVEN ORDERED. ALL SAFETY MEASURES IN PLACE. SIDE RAILS UP X3, BED IN LOWEST POSITION AND LOCKED. PLACE CALL LIGHT WITHIN REACH. WILL ENDORSE TO MORNING SHIFT NURSE.
[2022-08-14 08:00] VITALS: BP 111/75
--- NOTE | 2022-08-14 08:05 | NUR ---
REMOVED DRSG AND MED SPEC RIGHT FEMORAL AREA PER MD. BUCHANAN; NO NOTED BLEEDING/SWELLING. SITE OPEN TO AIR NOW.
[2022-08-14] MEDS: LEVOTHYROXINE SODIUM 50 MCG TABLET PO SCH (08:42)
[2022-08-14] MEDS: MEMANTINE HCL 5 MG TABLET PO SCH (08:43)
[2022-08-14] MEDS: ESCITALOPRAM OXALATE (10 MG) 10 MG TABLET PO SCH (08:43)
[2022-08-14] MEDS: MIDODRINE HCL (5MG) 5 MG TABLET PO SCH ×2 (08:43→12:56)
[2022-08-14] MEDS ORDERED: MIDO5TAB4 PO (08:45)
[2022-08-14] MEDS ORDERED: EPOE40007 IV (08:45)
[2022-08-14] MEDS ORDERED: IPRA0.2S9 NEB (08:45)
[2022-08-14] MEDS: INSULIN REGULAR, HUMAN 100 UNIT/ML 3 ML VIAL SQ PRN ×2 (08:46→12:53)
[2022-08-14] MEDS: BLOOD SUGAR DIAGNOSTIC 1 EACH STRIP IN SCH ×2 (08:48→12:55)
[2022-08-14] MEDS ORDERED: PANTOPRAZOLE 40 MG/PACK PACK PO SCH (09:00)
--- NOTE | 2022-08-14 11:25 | NUR ---
DR. BUCHANAN WAS NOTIFIED VIA PHONECALL THAT PER [place] PHARMACIST OF [facility], THE PRESCRIBED ATROVENT NEBULIZER AND EPOETIN NOT COVERING BY INSURANCE, AND MD INSTRUCTED TO NOTIFY PT'S DAUGHTER-EMMETT MADE AWARE AND EMMETT STATES " THAT IS OKAY IF NOT COVERED, WILL GET IT SOMEWHERE ELSE." CHARGE NURSE-SOON AWARE.
[2022-08-14] MEDS ORDERED: VANCOMYCIN 500 MG in IV D5W 100 ML IV PRN (11:30)
[2022-08-14 12:00] VITALS: BP 116/67
[2022-08-14] MEDS ORDERED: EPOETIN ALFA-EPBX 4,000 UNIT/ML VIAL IV SCH (15:00)
--- NOTE | 2022-08-14 15:55 | NUR ---
HEMODIALYSIS SESSION DONE; OUTPUT 1.5 LITERS
[2022-08-14 16:00] VITALS: BP 134/62
--- NOTE | 2022-08-14 16:20 | NUR ---
DISCHARGED PT. PER ORDER/PROTOCOL; NO SSx OF DISTRESS NOTED; ACCOMPANIED BY DAUGHTER UPON DISCHARGE. BELONGINGS TAKEN BY EMMETT-DAUGHTER, SEE BELONGING FORM.
== END 2022-08-14 16:24 | disposition home or self-care (01) | DRG 280 ==
LOC: ER 01:14 → TELE1 05:10
PROVIDERS: ADMIT Internal Medicine; ATTEND Internal Medicine
PROC: 5A1D70Z Performance of Urinary Filtration, Intermittent, Less than 6 Hours Per Day (ICD-10-PCS; principal; 2022-08-12)
DX: I21.4 Non-ST elevation (NSTEMI) myocardial infarction (principal); G93.41 Metabolic encephalopathy; N18.6 End stage renal disease; I50.33 Acute on chronic diastolic (congestive) heart failure; J96.01 Acute respiratory failure with hypoxia; I13.2 Hypertensive heart and chronic kidney disease with heart failure and with stage 5 chronic kidney disease, or end stage renal disease; L03.113 Cellulitis of right upper limb; Z20.822 Contact with and (suspected) exposure to COVID-19; E11.22 Type 2 diabetes mellitus with diabetic chronic kidney disease; D63.8 Anemia in other chronic diseases classified elsewhere; Z88.1 Allergy status to other antibiotic agents; Z88.2 Allergy status to sulfonamides; Z79.899 Other long term (current) drug therapy; F32.A Depression, unspecified; M89.8X9 Other specified disorders of bone, unspecified site; Z99.2 Dependence on renal dialysis; F09 Unspecified mental disorder due to known physiological condition; F03.90 Unspecified dementia, unspecified severity, without behavioral disturbance, psychotic disturbance, mood disturbance, and anxiety; E66.9 Obesity, unspecified; Z68.32 Body mass index [BMI] 32.0-32.9, adult; R04.0 Epistaxis
CPT/HCPCS: 36415; 36600; 71045-TC; 80048-TC; 80061-TC; 80076-TC; 82728-TC; 82803-TC; 82962-TC; 83540-TC; 83735-TC; 84100-TC; 84436-TC; 84439-TC; 84443-TC; 84484-TC; 85025-TC; 85610-TC; 85730-TC; 86706; 87081-TC; 87340; 90935-TC; 93307-TC; 94799-TC; 97112-TC; 97116-TC; C9113; C9803; G0378; J0885; J1815; J3370; J7030; J7050; J7060

== ENCOUNTER 2022-10-10 09:15 | Outpatient (CLI) | payer MEDICARE, OTHER ==
[~2022-10-10 09:15] MED LIST changes: -AMLO-212 PO; -CHOL50002 PO; +EPOE40007 IV; +ERGO500093 PO; +ESCI5TAB PO; +EVOL140P3 SQ; -FERR325T28 PO; -HYDR100T27 PO; +IPRA0.2S9 NEB; +MIDO5TAB4 PO; +MIRT-90 PO; -NEBI2.5T5 PO; -OMEP20CA15 PO; -SERT50TA PO; +SEVE800T8 PO; -SUCR1TAB31 PO; -TRAN650T2 PO; -[UNRECOGNIZED DRUG - CODE] NS
== END 2022-10-10 23:59 | disposition home or self-care (01) ==
LOC: WOU 09:15
PROVIDERS: ATTEND Podiatrist Foot & Ankle Surgery
DX: L60.3 Nail dystrophy (principal); L89.626 Pressure-induced deep tissue damage of left heel; L89.616 Pressure-induced deep tissue damage of right heel; E11.22 Type 2 diabetes mellitus with diabetic chronic kidney disease; N18.6 End stage renal disease; Z99.2 Dependence on renal dialysis
CPT/HCPCS: G0463

== ENCOUNTER 2022-12-05 09:41 | Outpatient (CLI) | payer MEDICARE, OTHER | END 2022-12-05 23:59 | disposition home or self-care (01) | LOC: WOU 09:41 | PROVIDERS: ATTEND Podiatrist Foot & Ankle Surgery | DX: L60.3 Nail dystrophy (principal); E11.9 Type 2 diabetes mellitus without complications; R22.41 Localized swelling, mass and lump, right lower limb | CPT/HCPCS: G0463 ==

== ENCOUNTER 2023-02-24 09:58 | Outpatient (CLI) | payer MEDICARE, OTHER | END 2023-02-24 23:59 | disposition home or self-care (01) | LOC: WOU 09:58 | PROVIDERS: ATTEND Podiatrist Foot & Ankle Surgery | DX: L60.3 Nail dystrophy (principal); E11.22 Type 2 diabetes mellitus with diabetic chronic kidney disease; N18.6 End stage renal disease; Z99.2 Dependence on renal dialysis; R22.41 Localized swelling, mass and lump, right lower limb | CPT/HCPCS: G0463 ==

== ENCOUNTER 2023-05-19 11:13 | Outpatient (CLI) | payer MEDICARE, OTHER | END 2023-05-19 23:59 | disposition home or self-care (01) | LOC: WOU 11:13 | PROVIDERS: ATTEND Podiatrist Foot & Ankle Surgery | DX: L60.3 Nail dystrophy (principal); E11.22 Type 2 diabetes mellitus with diabetic chronic kidney disease; N18.6 End stage renal disease; Z99.2 Dependence on renal dialysis; R22.41 Localized swelling, mass and lump, right lower limb; Z79.899 Other long term (current) drug therapy | CPT/HCPCS: G0463 ==

== ENCOUNTER 2023-06-09 09:11 | Outpatient (CLI) | payer MEDICARE, OTHER | END 2023-06-09 23:59 | disposition home or self-care (01) | LOC: WOU 09:11 | PROVIDERS: ATTEND Podiatrist Foot & Ankle Surgery | DX: L03.116 Cellulitis of left lower limb (principal); E11.22 Type 2 diabetes mellitus with diabetic chronic kidney disease; N18.6 End stage renal disease; Z99.2 Dependence on renal dialysis | CPT/HCPCS: G0463 ==

== ENCOUNTER 2023-06-12 13:17 | Outpatient (CLI) | payer MEDICARE, OTHER | END 2023-06-12 23:59 | disposition home or self-care (01) | LOC: WOU 13:17 | PROVIDERS: ATTEND Surgery | DX: S81.812D Laceration without foreign body, left lower leg, subsequent encounter (principal); X58.XXXD Exposure to other specified factors, subsequent encounter; L03.116 Cellulitis of left lower limb; E11.22 Type 2 diabetes mellitus with diabetic chronic kidney disease; N18.6 End stage renal disease; Z99.2 Dependence on renal dialysis; M62.50 Muscle wasting and atrophy, not elsewhere classified, unspecified site | CPT/HCPCS: G0463 ==

== ENCOUNTER 2023-06-16 08:23 | Outpatient (CLI) | payer MEDICARE, OTHER | END 2023-06-16 23:59 | disposition home or self-care (01) | LOC: WOU 08:23 | PROVIDERS: ATTEND Surgery | DX: S81.812D Laceration without foreign body, left lower leg, subsequent encounter (principal); X58.XXXD Exposure to other specified factors, subsequent encounter; E11.22 Type 2 diabetes mellitus with diabetic chronic kidney disease; N18.6 End stage renal disease; Z99.2 Dependence on renal dialysis; M62.50 Muscle wasting and atrophy, not elsewhere classified, unspecified site | CPT/HCPCS: G0463 ==

== ENCOUNTER 2024-05-17 09:49 | Outpatient (CLI) | payer MEDICARE, OTHER | END 2024-05-17 23:59 | disposition home or self-care (01) | LOC: WOU 09:49 | PROVIDERS: ATTEND Student in an Organized Health Care Education/Training Program | DX: E11.40 Type 2 diabetes mellitus with diabetic neuropathy, unspecified (principal); E11.22 Type 2 diabetes mellitus with diabetic chronic kidney disease; N18.6 End stage renal disease; Z99.2 Dependence on renal dialysis; L60.3 Nail dystrophy; M62.50 Muscle wasting and atrophy, not elsewhere classified, unspecified site; B35.1 Tinea unguium ==